=== PATIENT | male | born 1975 | race Caucasian/White ===

== ENCOUNTER → 2016-07-31 | Outpatient (CLI) | payer OTHER ==
[~2016-07-31] MED LIST: 'PARAFON FORTE500 M1 PO; AMOXICILLIN500 M3 PO; CATAFLAM50 MG PO; CIPROFLOXACIN500 MG PO; CLARITIN10 MG PO; CLINDAMYCIN HC300 MG PO; CYCLOBENZAPRINE10 MG PO; CYCLOBENZAPRINE5 M3 PO; FLEXERIL5 MG PO; LEVAQUIN750 MG PO; MEDROL DOSEPAK4 MG PO; Motrin,Rufen800 MG PO; NAPROSYN500 MG PO; NKHM; PEPCID20 MG PO; PREDNISONE10 MG PO; PREDNISONE50 MG PO; TRAMADOL HCL50 MG PO; TRIMOX500 MG PO; ULTRAM50 MG PO; VICODIN 5/500 505 MG PO; VICODIN 500 MG-1 TAB PO; VOLTAREN50 M1 PO; ZOFRAN ODT4 MG SL
[2016-07-31 16:17] LABS: BASO # 0.1 10*3/uL (0.0-0.1); BASO % 0.9 % (0.0-1.0); EOS # 0.4 10*3/uL (0.0-0.4); EOS % 5.2 % (1.0-4.0); HEMATOCRIT 41.8 % (42.0-52.0); HEMOGLOBIN 14.2 g/dl (14.0-18.0); LYMPH # 2.3 10*3/uL (1.3-4.4); LYMPH % 26.7 % (27.0-41.0); MEAN CELL VOLUME 87.3 fl (80.0-94.0); MEAN CORPUSCULAR HGB 29.6 pg (27.0-31.0); MONO # 0.9 10*3/uL (0.1-1.0); MONO % 10.4 % (3.0-9.0); NEUT # 4.8 10*3/uL (2.3-7.9); NEUT % 56.4 % (47.0-73.0); PLATELET COUNT AUTOMATED 235 10*3/uL (130-400); RED BLOOD COUNT 4.79 10*6/uL (4.50-5.90); RED CELL DISTRI WIDTH 13.1 % (0-14.5); WHITE BLOOD COUNT 8.5 10*3/uL (4.8-10.8)
[2016-07-31 16:40] LABS: PROTHROMBIN TIME 10.9 SECONDS (9.0-12.4)
== END | disposition home or self-care (01) ==
LOC: LAB 15:43
PROVIDERS: Family Medicine
DX: K02.9 Dental caries, unspecified (principal); R79.1 Abnormal coagulation profile

== ENCOUNTER 2016-08-02 17:51 | Emergency (ER) | payer OTHER ==
[~2016-08-02] VITALS: Wt 118.8 kg
[~2016-08-02 17:51] MED LIST changes: -'PARAFON FORTE500 M1 PO
[2016-08-02] MEDS ORDERED: 'PARAFON FORTE500 M1 PO (17:59)
[2016-08-02] MEDS ORDERED: NAPROSYN500 MG PO (17:59)
== END 2016-08-02 18:55 | disposition home or self-care (01) ==
LOC: ED 17:51
DX: S39.012A Strain of muscle, fascia and tendon of lower back, initial encounter (principal); M54.31 Sciatica, right side; M54.32 Sciatica, left side; R03.0 Elevated blood-pressure reading, without diagnosis of hypertension; Z88.8 Allergy status to other drugs, medicaments and biological substances; X58.XXXA Exposure to other specified factors, initial encounter; Y93.89 Activity, other specified; Y92.9 Unspecified place or not applicable; Y99.9 Unspecified external cause status

== ENCOUNTER 2016-09-25 07:17 | Emergency (ER) | payer OTHER ==
[~2016-09-25] VITALS: Ht 182.8 cm; Wt 121.6 kg
[~2016-09-25 07:17] MED LIST changes: +'PARAFON FORTE500 M1 PO
[2016-09-25] MEDS ORDERED: CYCLOBENZAPRINE10 MG PO (07:22)
[2016-09-25] MEDS ORDERED: AUGMENTIN 875-875 MG PO (07:22)
[2016-09-25] MEDS ORDERED: IBU800 M1 PO (07:22)
[2016-09-25] MEDS ORDERED: NAPROSYN500 MG PO (09:35)
== END 2016-09-25 09:55 | disposition home or self-care (01) ==
LOC: ED 07:17
DX: J02.9 Acute pharyngitis, unspecified (principal)

== ENCOUNTER 2017-01-10 22:23 | Emergency (ER) | payer OTHER ==
[~2017-01-10] VITALS: Ht 182.8 cm; Wt 126.1 kg
[~2017-01-10 22:23] MED LIST changes: +AUGMENTIN 875-875 MG PO; +IBU800 M1 PO
[2017-01-10] MEDS ORDERED: PREDNISONE50 MG PO (22:31)
== END 2017-01-10 23:11 | disposition home or self-care (01) ==
LOC: ED 22:23
DX: J02.9 Acute pharyngitis, unspecified (principal); Z79.899 Other long term (current) drug therapy

== ENCOUNTER 2017-01-12 20:42 | Emergency (ER) | payer OTHER ==
[~2017-01-12] VITALS: Ht 182.8 cm; Wt 126.1 kg
[2017-01-12] MEDS ORDERED: KENALOG 0.1%80 GM T (21:46)
[2017-01-12] MEDS ORDERED: PREDNISONE10 MG PO (21:46)
== END 2017-01-12 22:06 | disposition home or self-care (01) ==
LOC: ED 20:42
DX: L25.5 Unspecified contact dermatitis due to plants, except food (principal); Z79.899 Other long term (current) drug therapy

== ENCOUNTER 2017-01-17 22:03 | Emergency (ER) | payer OTHER ==
[~2017-01-17] VITALS: Ht 167.6 cm; Wt 126.1 kg
[~2017-01-17 22:03] MED LIST changes: +KENALOG 0.1%80 GM T
== END 2017-01-18 00:01 | disposition home or self-care (01) ==
LOC: ED 22:03
DX: S40.021A Contusion of right upper arm, initial encounter (principal); Z79.899 Other long term (current) drug therapy; W51.XXXA Accidental striking against or bumped into by another person, initial encounter; Y93.72 Activity, wrestling; Y92.89 Other specified places as the place of occurrence of the external cause; Y99.8 Other external cause status

== ENCOUNTER 2017-07-14 22:20 | Emergency (ER) | payer OTHER ==
[~2017-07-14] VITALS: Ht 182.8 cm; Wt 131.5 kg
[2017-07-14 22:44] LABS: BILIRUBIN NEGATIVE (NEGATIVE); BLOOD NEGATIVE (NEGATIVE); CLARITY CLEAR (CLEAR); COLOR YELLOW (YELLOW); GLUCOSE NEGATIVE (NEGATIVE); KETONE NEGATIVE (NEGATIVE); LEUKO ESTERASE NEGATIVE (NEGATIVE); NITRITE NEGATIVE (NEGATIVE)
[2017-07-14 23:04] LABS: EPITHELIAL CELLS 0-5; WBC 0-2 wbc/hpf (0-5)
== END 2017-07-15 00:29 | disposition home or self-care (01) ==
LOC: ED 22:20
PROVIDERS: Physician Assistant
DX: M54.6 Pain in thoracic spine (principal); M79.641 Pain in right hand; M79.644 Pain in right finger(s); Z79.899 Other long term (current) drug therapy; V47.5XXA Car driver injured in collision with fixed or stationary object in traffic accident, initial encounter; Y93.89 Activity, other specified; Y92.488 Other paved roadways as the place of occurrence of the external cause; Y99.8 Other external cause status

== ENCOUNTER → 2017-08-02 | Outpatient (CLI) | payer OTHER | END | disposition home or self-care (01) | LOC: ORTHO 01:59 | DX: S62.306A Unspecified fracture of fifth metacarpal bone, right hand, initial encounter for closed fracture (principal); X58.XXXA Exposure to other specified factors, initial encounter; Y93.89 Activity, other specified; Y92.89 Other specified places as the place of occurrence of the external cause; Y99.8 Other external cause status ==

== ENCOUNTER 2018-01-26 04:46 | Emergency (ER) | payer OTHER ==
[~2018-01-26] VITALS: Ht 185.4 cm; Wt 127.0 kg
[2018-01-26 05:28] LABS: BASO % 0.5 % (0.0-1.0); EOS # 0.3 10*3/uL (0.0-0.4); EOS % 3.9 % (1.0-4.0); HEMATOCRIT 39.9 % (42.0-52.0); HEMOGLOBIN 13.6 g/dl (14.0-18.0); LYMPH # 1.2 10*3/uL (1.3-4.4); MEAN CELL VOLUME 88.7 fl (80.0-94.0); MEAN CORPUSCULAR HGB 30.2 pg (27.0-31.0); MEAN CORPUSCULAR HGB CONC 34.1 g/dl (33.0-37.0); MEAN PLATELET VOLUME 9.6 fl (9.6-12.3); MONO # 0.5 10*3/uL (0.1-1.0); MONO % 6.7 % (3.0-9.0); NEUT # 5.7 10*3/uL (2.3-7.9); NEUT % 73.6 % (47.0-73.0); PLATELET COUNT AUTOMATED 185 10*3/uL (130-400); RED CELL DISTRI WIDTH 13.1 % (0-14.5); WHITE BLOOD COUNT 7.8 10*3/uL (4.8-10.8)
[2018-01-26 05:42] LABS: ALBUMIN 4.2 gm/dl (3.1-4.5); ALKALINE PHOSPHATASE 53 U/L (45-117); BUN 8 mg/dl (7-24); CHLORIDE 105 mmol/L (98-107); CREATININE 0.87 mg/dL (0.70-1.30); SGOT/AST 31 IU/L (3-35); SGPT/ALT 64 U/L (12-78); SODIUM 142 mmol/L (136-145); TOTAL PROTEIN 7.9 gm/dL (6.4-8.2)
[2018-01-26 07:09] LABS: CLARITY CLOUDY (CLEAR); COLOR YELLOW (YELLOW)
[2018-01-26 07:10] LABS: BILIRUBIN NEGATIVE (NEGATIVE); BLOOD 3+ (NEGATIVE); GLUCOSE NEGATIVE (NEGATIVE); KETONE NEGATIVE (NEGATIVE); LEUKO ESTERASE NEGATIVE (NEGATIVE); NITRITE NEGATIVE (NEGATIVE); SPECIFIC GRAVITY 1.025 (1.005-1.030); UROBILINOGEN 0.2 E.U./dl (0.2-1.0)
[2018-01-26 07:11] LABS: RBC TNTC rbc/hpf (0-2)
== END 2018-01-26 07:19 | disposition home or self-care (01) ==
LOC: ED 04:46
PROVIDERS: Emergency Medicine
DX: N20.0 Calculus of kidney (principal); R11.10 Vomiting, unspecified; Z87.442 Personal history of urinary calculi

== ENCOUNTER 2019-05-20 18:00 | Emergency (ER) | payer OTHER ==
[~2019-05-20] VITALS: Ht 185.4 cm; Wt 113.4 kg
[2019-05-20] MEDS ORDERED: Motrin,Rufen800 MG PO (20:07)
[2019-05-20] MEDS ORDERED: CYCLOBENZAPRINE5 M3 PO (20:07)
== END 2019-05-20 20:18 | disposition home or self-care (01) ==
LOC: ED 18:00
DX: M54.16 Radiculopathy, lumbar region (principal); M25.561 Pain in right knee; M25.562 Pain in left knee; G89.29 Other chronic pain; Z87.442 Personal history of urinary calculi

== ENCOUNTER → 2019-11-02 | Outpatient (CLI) | payer OTHER | END | disposition home or self-care (01) | LOC: RAD 18:54 | DX: M25.562 Pain in left knee (principal) ==

== ENCOUNTER → 2020-02-01 | Outpatient (CLI) | payer OTHER | END | disposition home or self-care (01) | LOC: RAD 16:08 | PROVIDERS: ATTEND Family Medicine | DX: M79.673 Pain in unspecified foot (principal) ==

== ENCOUNTER → 2020-03-15 | Outpatient (CLI) | payer OTHER | END | disposition home or self-care (01) | LOC: MRI 11:00 | PROVIDERS: ATTEND Family Medicine | DX: M17.12 Unilateral primary osteoarthritis, left knee (principal) ==

== ENCOUNTER 2020-09-09 19:05 | Emergency (ER) | payer OTHER ==
[2020-09-09] MEDS ORDERED: NAPROSYN500 MG PO (19:15)
== END 2020-09-09 19:33 | disposition home or self-care (01) ==
LOC: ED 19:05
DX: M72.2 Plantar fascial fibromatosis (principal); Z79.899 Other long term (current) drug therapy

== ENCOUNTER 2021-03-11 03:56 | Inpatient (IN) | payer OTHER ==
[~2021-03-11] VITALS: Ht 182.8 cm; Wt 119.9 kg
[2021-03-11 04:01] VITALS: BP 99/47
[2021-03-11 04:48] LABS: HEMATOCRIT 38.1 % (42.0-52.0); MEAN CELL VOLUME 86.4 fl (80.0-94.0); MEAN CORPUSCULAR HGB 27.7 pg (27.0-31.0); MEAN PLATELET VOLUME 10.2 fl (9.6-12.3); PLATELET COUNT AUTOMATED 143 10*3/uL (130-400); RED BLOOD COUNT 4.41 10*6/uL (4.50-5.90); RED CELL DISTRI WIDTH 13.4 % (0-14.5); WHITE BLOOD COUNT 2.9 10*3/uL (4.8-10.8)
[2021-03-11 05:03] LABS: ALBUMIN 2.9 gm/dl (3.1-4.5); ALKALINE PHOSPHATASE 61 U/L (45-117); BUN 13 mg/dl (7-24); CHLORIDE 107 mmol/L (98-107); CPK 114 U/L (39-308); POTASSIUM 3.4 mmol/L (3.5-5.1); SGOT/AST 72 IU/L (3-35); SGPT/ALT 42 U/L (12-78); SODIUM 142 mmol/L (136-145); TOTAL PROTEIN 7.8 gm/dL (6.4-8.2)
[2021-03-11 05:11] LABS: ATYPICAL LYMPHS 1 % (0-0); BASOPHILS 1 % (0-1); PLATELET SUFFICIENCY NORMAL (NORMAL); TOTAL CELLS COUNTED 100 #CELLS
[2021-03-11 05:12] LABS: MICROCYTOSIS SLIGHT
[2021-03-11 05:59] VITALS: BP 103/56
[2021-03-11 08:43] VITALS: BP 108/62
[2021-03-11] MEDS ORDERED: CYCLOBENZAPRINE10 MG PO (09:16)
[2021-03-11 12:00] VITALS: BP 107/68
[2021-03-11 16:00] VITALS: BP 108/78
[2021-03-12] VITALS: BP 99/51
[2021-03-12 07:26] LABS: ALBUMIN 2.7 gm/dl (3.1-4.5); BUN 17 mg/dl (7-24); CHLORIDE 108 mmol/L (98-107); POTASSIUM 3.6 mmol/L (3.5-5.1); SGPT/ALT 54 U/L (12-78); SODIUM 142 mmol/L (136-145)
[2021-03-12 07:29] LABS: ALKALINE PHOSPHATASE 58 U/L (45-117); CREATININE 0.65 mg/dL (0.70-1.30); SGOT/AST 71 IU/L (3-35); TOTAL PROTEIN 7.7 gm/dL (6.4-8.2)
[2021-03-12 07:33] LABS: HEMATOCRIT 37.6 % (42.0-52.0); MEAN CELL VOLUME 87.4 fl (80.0-94.0); MEAN CORPUSCULAR HGB 27.7 pg (27.0-31.0); MEAN CORPUSCULAR HGB CONC 31.6 g/dl (33.0-37.0); MEAN PLATELET VOLUME 11.3 fl (9.6-12.3); PLATELET COUNT AUTOMATED 154 10*3/uL (130-400); RED CELL DISTRI WIDTH 13.3 % (0-14.5); WHITE BLOOD COUNT 3.5 10*3/uL (4.8-10.8)
[2021-03-12 08:00] VITALS: BP 115/66
[2021-03-12 08:17] LABS: ATYPICAL LYMPHS 1 % (0-0); PLATELET SUFFICIENCY NORMAL (NORMAL); TOTAL CELLS COUNTED 100 #CELLS
[2021-03-12 14:45] LABS: ABG BASE EXCESS 1.8 mmol/L (-2.0-2.0); ARTERIAL BLOOD GAS PH 7.467 (7.35-7.45)
[2021-03-12 15:00] VITALS: BP 107/60
[2021-03-12 20:00] VITALS: BP 107/62
[2021-03-13] VITALS: BP 107/60
[2021-03-13 06:46] LABS: ALBUMIN 2.6 gm/dl (3.1-4.5); BUN 18 mg/dl (7-24); CHLORIDE 108 mmol/L (98-107); POTASSIUM 3.6 mmol/L (3.5-5.1); SODIUM 143 mmol/L (136-145)
[2021-03-13 06:53] LABS: ALKALINE PHOSPHATASE 55 U/L (45-117); CREATININE 0.69 mg/dL (0.70-1.30); SGOT/AST 88 IU/L (3-35); SGPT/ALT 86 U/L (12-78); TOTAL PROTEIN 7.5 gm/dL (6.4-8.2)
[2021-03-13 07:00] LABS: HEMATOCRIT 37.4 % (42.0-52.0); MEAN CELL VOLUME 87.4 fl (80.0-94.0); MEAN CORPUSCULAR HGB 27.3 pg (27.0-31.0); MEAN CORPUSCULAR HGB CONC 31.3 g/dl (33.0-37.0); MEAN PLATELET VOLUME 11.7 fl (9.6-12.3); RED BLOOD COUNT 4.28 10*6/uL (4.50-5.90); RED CELL DISTRI WIDTH 13.3 % (0-14.5); WHITE BLOOD COUNT 5.2 10*3/uL (4.8-10.8)
[2021-03-13 07:18] LABS: PLATELET COUNT AUTOMATED 202 10*3/uL (130-400)
[2021-03-13 07:57] LABS: ATYPICAL LYMPHS 3 % (0-0); TOTAL CELLS COUNTED 100 #CELLS
[2021-03-13 07:58] LABS: PLATELET SUFFICIENCY NORMAL (NORMAL); POLYCHROMASIA SLIGHT
[2021-03-13 08:00] VITALS: BP 107/63
[2021-03-13 12:00] VITALS: BP 134/71
[2021-03-13 16:00] VITALS: BP 115/64
[2021-03-13 20:00] VITALS: BP 136/79
[2021-03-14] VITALS: BP 115/67
[2021-03-14 06:25] LABS: HEMATOCRIT 39.9 % (42.0-52.0); MEAN CELL VOLUME 87.5 fl (80.0-94.0); MEAN CORPUSCULAR HGB 27.2 pg (27.0-31.0); MEAN CORPUSCULAR HGB CONC 31.1 g/dl (33.0-37.0); MEAN PLATELET VOLUME 11.5 fl (9.6-12.3); PLATELET COUNT AUTOMATED 225 10*3/uL (130-400); RED BLOOD COUNT 4.56 10*6/uL (4.50-5.90); RED CELL DISTRI WIDTH 13.2 % (0-14.5); WHITE BLOOD COUNT 6.3 10*3/uL (4.8-10.8)
[2021-03-14 06:52] LABS: CHLORIDE 107 mmol/L (98-107); CREATININE 0.65 mg/dL (0.70-1.30); POTASSIUM 3.8 mmol/L (3.5-5.1); SGPT/ALT 91 U/L (12-78); SODIUM 144 mmol/L (136-145)
[2021-03-14 06:57] LABS: ALBUMIN 2.8 gm/dl (3.1-4.5); ALKALINE PHOSPHATASE 59 U/L (45-117); BUN 16 mg/dl (7-24); SGOT/AST 55 IU/L (3-35); TOTAL PROTEIN 7.8 gm/dL (6.4-8.2)
[2021-03-14 07:40] LABS: TOTAL CELLS COUNTED 100 #CELLS
[2021-03-14 07:41] LABS: BURR CELLS FEW; OVALOCYTES FEW; PLATELET SUFFICIENCY NORMAL (NORMAL)
[2021-03-14 08:00] VITALS: BP 114/68
[2021-03-14 08:10] LABS: ABG BASE EXCESS 4.1 mmol/L (-2.0-2.0); ARTERIAL BLOOD GAS PH 7.473 (7.35-7.45); ARTERIAL BLOOD GAS PO2 84.3 (80-90)
[2021-03-14 12:00] VITALS: BP 120/68
[2021-03-14 15:35] VITALS: BP 121/67
[2021-03-14 20:00] VITALS: BP 123/80
[2021-03-15] VITALS: BP 110/64
[2021-03-15 06:17] LABS: BASO % 0.1 % (0.0-1.0); EOS # 0.1 10*3/uL (0.0-0.4); EOS % 0.7 % (1.0-4.0); HEMATOCRIT 37.6 % (42.0-52.0); LYMPH # 0.7 10*3/uL (1.3-4.4); MEAN CELL VOLUME 87.6 fl (80.0-94.0); MEAN CORPUSCULAR HGB 27.5 pg (27.0-31.0); MEAN CORPUSCULAR HGB CONC 31.4 g/dl (33.0-37.0); MEAN PLATELET VOLUME 11.4 fl (9.6-12.3); MONO # 0.6 10*3/uL (0.1-1.0); MONO % 9.5 % (3.0-9.0); NEUT # 5.2 10*3/uL (2.3-7.9); NEUT % 77.2 % (47.0-73.0); PLATELET COUNT AUTOMATED 225 10*3/uL (130-400); RED BLOOD COUNT 4.29 10*6/uL (4.50-5.90); RED CELL DISTRI WIDTH 13.2 % (0-14.5); WHITE BLOOD COUNT 6.7 10*3/uL (4.8-10.8)
[2021-03-15 06:30] LABS: ALBUMIN 2.5 gm/dl (3.1-4.5); ALKALINE PHOSPHATASE 50 U/L (45-117); BUN 15 mg/dl (7-24); CHLORIDE 110 mmol/L (98-107); POTASSIUM 3.9 mmol/L (3.5-5.1); SGOT/AST 31 IU/L (3-35); SGPT/ALT 72 U/L (12-78); SODIUM 143 mmol/L (136-145); TOTAL PROTEIN 6.7 gm/dL (6.4-8.2)
[2021-03-15 08:00] VITALS: BP 108/80
[2021-03-15 12:00] VITALS: BP 151/76
[2021-03-15 16:00] VITALS: BP 115/84
[2021-03-15 20:00] VITALS: BP 144/98
[2021-03-16] VITALS: BP 148/88
[2021-03-16 06:26] LABS: HEMATOCRIT 38.2 % (42.0-52.0); MEAN CELL VOLUME 85.5 fl (80.0-94.0); MEAN CORPUSCULAR HGB 27.5 pg (27.0-31.0); MEAN CORPUSCULAR HGB CONC 32.2 g/dl (33.0-37.0); MEAN PLATELET VOLUME 11.1 fl (9.6-12.3); PLATELET COUNT AUTOMATED 281 10*3/uL (130-400); RED BLOOD COUNT 4.47 10*6/uL (4.50-5.90); WHITE BLOOD COUNT 8.3 10*3/uL (4.8-10.8)
[2021-03-16 06:47] LABS: ALBUMIN 2.5 gm/dl (3.1-4.5); BUN 17 mg/dl (7-24); CHLORIDE 108 mmol/L (98-107); SODIUM 140 mmol/L (136-145)
[2021-03-16 06:50] LABS: ALKALINE PHOSPHATASE 48 U/L (45-117); CREATININE 0.58 mg/dL (0.70-1.30); SGOT/AST 20 IU/L (3-35); SGPT/ALT 58 U/L (12-78); TOTAL PROTEIN 6.8 gm/dL (6.4-8.2)
[2021-03-16 06:54] LABS: PLATELET SUFFICIENCY NORMAL (NORMAL); TOTAL CELLS COUNTED 100 #CELLS
[2021-03-16 08:00] VITALS: BP 137/76
[2021-03-16] MEDS ORDERED: XARELTO20 M1 PO (09:57)
[2021-03-16] MEDS ORDERED: DECADRON6 M1 PO (09:59)
[2021-03-16] MEDS ORDERED: MUCUS RELIEF600 MG PO (09:59)
[2021-03-16 12:00] VITALS: BP 127/83
[2021-03-16 16:00] VITALS: BP 147/87
== END 2021-03-16 18:34 | disposition home or self-care (01) | DRG 720 ==
LOC: ED 03:56 → 4E 05:51 → EDHOLD 05:51 → 4E 07:54
PROVIDERS: Emergency Medicine; Registered Nurse; Student in an Organized Health Care Education/Training Program; ADMIT Internal Medicine; ATTEND Internal Medicine
PROC: 5A0945A Assistance with Respiratory Ventilation, 24-96 Consecutive Hours, High Flow/Velocity Cannula (ICD-10-PCS; principal; 2021-03-11)
PROC: XW033E5 Introduction of Remdesivir Anti-infective into Peripheral Vein, Percutaneous Approach, New Technology Group 5 (ICD-10-PCS; 2021-03-12)
PROC: 5A0935A Assistance with Respiratory Ventilation, Less than 24 Consecutive Hours, High Flow/Velocity Cannula (ICD-10-PCS; 2021-03-14)
PROC: 5A0935A Assistance with Respiratory Ventilation, Less than 24 Consecutive Hours, High Flow/Velocity Cannula (ICD-10-PCS; 2021-03-15)
DX: A41.9 Sepsis, unspecified organism (principal); U07.1 COVID-19; J12.82 Pneumonia due to coronavirus disease 2019; E44.0 Moderate protein-calorie malnutrition; R65.20 Severe sepsis without septic shock; J96.01 Acute respiratory failure with hypoxia; E87.6 Hypokalemia; R73.9 Hyperglycemia, unspecified; R74.01 Elevation of levels of liver transaminase levels; I48.92 Unspecified atrial flutter; Z88.8 Allergy status to other drugs, medicaments and biological substances; Z79.899 Other long term (current) drug therapy; Z68.35 Body mass index [BMI] 35.0-35.9, adult